=== PATIENT | male | born 1940 | race Caucasian/White ===

== ENCOUNTER 2019-04-02 11:15 | Inpatient (IN) | payer MEDICARE ==
[~2019-04-02] VITALS: Ht 182.9 cm; Wt 118.8 kg
[~2019-04-02 11:15] MED LIST: HYDACE5; HYDCHL12.5 PO; LISI20 PO; OXYACE5T PO; PIRO10
[2019-04-02 13:13] LABS: BASOPHILS ABSOLUTE AUTO 0.08 K/mm3 (0.00-0.23); BASOPHILS PERCENT AUTO 1 % (0-2); EOSINOPHILS ABSOLUTE AUTO 0.36 K/mm3 (0.00-0.68); EOSINOPHILS PERCENT AUTO 4 % (0-6); Hematocrit 43.2 % (37.0-53.0); Hemoglobin 14.3 g/dL (13.5-17.5); IMMATURE GRAN ABSOLUTE AUTO 0.03 K/mm3 (0.00-0.10); IMMATURE GRAN PERCENT AUTO 0 % (0-1); LYMPHOCYTES ABSOLUTE AUTO 2.95 K/mm3 (0.84-5.20); LYMPHOCYTES PERCENT AUTO 31 % (21-46); MONOCYTES ABSOLUTE AUTO 0.87 K/mm3 (0.16-1.47); MONOCYTES PERCENT AUTO 9 % (4-13); Mean Corpuscular HGB 32.6 pg (26.0-34.0); Mean Corpuscular HGB Conc 33.1 g/dL (31.5-36.5); Mean Corpuscular Volume 98 fL (80-100); Mean Platelet Volume 11.3 fL (9.1-12.4); NEUTROPHILS ABSOLUTE AUTO 5.17 K/mm3 (1.96-9.15); NEUTROPHILS PERCENT AUTO 55 % (41-73); Platelet Count 164 K/mm3 (150-400); RDW Coefficient Variation 12.6 % (11.7-14.2); RDW Standard Deviation 45.5 fL (35.1-46.3); Red Blood Cell Count 4.39 M/mm3 (4.30-5.90); White Blood Cell Count 9.46 K/mm3 (4.00-11.30)
[2019-04-02 13:24] LABS: Alanine Aminotransfer (ALT/SGP 15 U/L (12-78); Albumin, Blood 3.4 g/dL (3.4-5.0); Alk Phos 73 U/L (50-136); Anion Gap 6 mmol/L (6-16); Aspartate Aminotrans (AST/SGOT 21 U/L (12-37); Bilirubin, Total 0.4 mg/dL (0.1-1.0); Blood Urea Nitrogen 21 mg/dL (8-24); Bun/Creatinine Ratio 23.3 (12.0-20.0); CO2, Blood 25 mmol/L (21-32); Calcium, Blood 8.4 mg/dL (8.5-10.1); Chloride, Blood 109 mmol/L (98-108); Globulin, Blood 3.3 g/dL (2.2-4.0); Glomerular Filtration Rate >60 (60-); Glucose, Blood 95 mg/dL (70-99); Potassium, Blood 4.1 mmol/L (3.5-5.5); Sodium, Blood 140 mmol/L (136-145); Total Protein, Blood 6.7 g/dL (6.4-8.2)
[2019-04-02 13:29] LABS: International Normalized Ratio 0.97; Prothrombin Time Results 10.3 Sec (9.7-11.5)
[2019-04-02] MEDS ORDERED: Simvastatin20 MG PO (13:32)
--- NOTE | 2019-04-02 18:30 | NUR ---
SHIFT SUMMARY PT HAS BEEN ON SURGICAL FLOOR SINCE APPROX 1630. PT HAS BEEN ON BEDREST PER ORDER, USING URINAL IND. PT ATE DINNER. A/OX4. REPORTS PAIN ONLY WITH MOVEMENT OF LEFT LEG, SHOULDER, AND KNEE. NO NAUSEA. HAS BEEN IN RM WITH PT.
[2019-04-03 03:37] LABS: Hematocrit 38.3 % (37.0-53.0); Hemoglobin 12.8 g/dL (13.5-17.5)
[2019-04-03 03:54] LABS: Anion Gap 4 mmol/L (6-16); Blood Urea Nitrogen 17 mg/dL (8-24); Bun/Creatinine Ratio 20.2 (12.0-20.0); CO2, Blood 26 mmol/L (21-32); Calcium, Blood 7.9 mg/dL (8.5-10.1); Chloride, Blood 109 mmol/L (98-108); Creatinine, Blood 0.84 mg/dL (0.60-1.20); Glomerular Filtration Rate >60 (60-); Glucose, Blood 108 mg/dL (70-99); Potassium, Blood 4.3 mmol/L (3.5-5.5); Sodium, Blood 139 mmol/L (136-145)
--- NOTE | 2019-04-03 05:32 | NUR ---
SHIFT SUMMARY: HORTENSIA WAS ADMITTED YESTERDAY AFTERNOON AFTER EXPERIENCING A FALL RESULTING IN A LEFT HIP FX. HE IS ON BEDREST. HE IS A&O X 4. HE IS A POOR HISTORIAN. HE IS NPO AT THIS TIME. IV PATENT. HE HAS REQUESTED THAT THE SCDs BE TURNED OFF FOR AWHILE. HE IS ON THE ADD-ON LIST FOR SURGERY TODAY, NO TIME SCHEDULED YET.
[2019-04-03 16:50] LABS: Source, Urine Clean Catch
--- NOTE | 2019-04-03 16:53 | NUR ---
PT TAKEN TO DAY SURGERY AT THIS TIME.
[2019-04-03 16:54] LABS: Bilirubin, Urine Neg (Neg); Blood, Urine 5+ (Neg); Glucose Qualitative, Urine Neg (Neg); Ketones, Urine 2+ (Neg); Leukocyte Esterase, Urine Neg (Neg); Nitrite, Urine Neg (Neg); Protein, Urine Neg (Neg); Specific Gravity, Urine 1.015 (1.003-1.022); Urobilinogen, Urine NORM (Normal)
--- NOTE | 2019-04-03 16:58 | NUR ---
INTO SDS VIA BED. PT A&OX3. DENIES PAIN AT THIS TIME. HISTORY AND ALLERGIES REVIEWED. NPO STATUS CONFIRMED. LUNGS CLEAR. SATS>90% ON RA.
[2019-04-03 17:02] LABS: Appearance, Urine Clear (Clear); Color, Urine Yellow (P-Yellow)
[2019-04-03 17:04] LABS: Bacteria Mod /hpf; Mucus Light (0-Heavy); Squamous Epithelial Cells Few /hpf (Few); White Blood Cells, Urine 0-2 /hpf (0-5)
--- NOTE | 2019-04-03 17:33 | NUR ---
SCD'S IN PLACE-DID NOT CLEAN LEFT HIP WITH CHLORHEXIDINE OR APPLY TEDS DUE TO PAIN WITH MOVING AND/OR TOUCHING THE LEFT LEG OR HIP.
--- NOTE | 2019-04-03 19:36 | NUR ---
SHIFT SUMMARY PT CURRENTLY IN OR. REPORT GIVEN TO FRANCK DANIELSON
--- NOTE | 2019-04-03 19:50 | NUR ---
04/03/191949 [place] IMPLANTS NOT IN SYSTEM
--- NOTE | 2019-04-03 20:27 | NUR ---
TO ICU16 FOR RECOVERY FROM OR. AWAKE COLLIER NEEDS REMINDERS TO FOLLOW DIRECTIONS. NON REBREATHER IN PLACE SPO2 95-99% NON RESBREATHER REMOVED AT 2034. RESPIRATIONS REGULAR AND EASY ION ROOM AIR LUNG SOUNDS CLEAR DRESSING TO L HIP DRY AND INTACT. WIGGLES TOES CDB WELL. CONTINUE TO MONITOR AND REPORT CHANGE IN PATIENT CONDITION.
--- NOTE | 2019-04-03 20:30 | NUR ---
ATTEMPTS TO REMOVE GOWN AND SPO2 PROBE. FREQUENT REMINDERS TO ORIENT TO SITUATION POST OP XRAY OBTAINED.
--- NOTE | 2019-04-03 21:00 | NUR ---
REPORT CALLED TO NIKI DANIELSON. AMIRA CHRISTIAN FORGETFULL OF WHERE HE IS."this DOESN'T LOOKM FAMILER" WHERE AM I REORIENTED. REMEMBERS PREVIOUS EVENTS. XCONTINUE TO MONITOR AND REPORT CHANGE IN PATIENT CONDITION
--- NOTE | 2019-04-04 07:24 | NUR ---
SUMMARY RECEIVED FROM ICU/RECOVERY TOIGHT IN NO ACUTE DISTRESS. REPORTS MINIMAL DISCOMFORT. VOIDING. DENIES CP OR SOB. CIRC CKS INTACT.
--- NOTE | 2019-04-04 16:19 | NUR ---
SHIFT SUMMARY PAIN HAS BEEN MINIMAL THIS SHIFT AND HAS BEEN MANAGED WITH TYLENOL. PT WAS ABLE TO WORK WITH THERAPY. SNF RECOMMENDATION. PT TOLERATING PO AND VOIDING. VSS. WILL MONITOR UNTIL REPORT TO ONCOMING RN.
--- NOTE | 2019-04-04 18:44 | NUR ---
REPORT RECIEVED FROM ERUM FIELDS AT ABOUT 1700. PT IS STABLE AT THIS TIME, WILL GIVE REPORT TO FRANCK RN
--- NOTE | 2019-04-05 07:25 | NUR ---
FELIX: POD 2 LEFT HIP PINNING. VSS, AFEBRILE, TOLERATING PO INTAKEM, VOIDING. ENCOURAGE BOWEL CARE AND OOB ACTIVITY. ANTICIPATE PT/OT AND PLAN TO DC TO SNF.
--- NOTE | 2019-04-05 08:09 | NUR ---
DR PHELPS BEEN TO SEE PT.
--- NOTE | 2019-04-05 08:10 | NUR ---
DR PHELPS REPORTS OK TO GO TO SNF FROM HIS STANDPOINT.
--- NOTE | 2019-04-05 10:10 | NUR ---
DR YANCEY HERE TO SEE PT, DISCUSSED PT STATUS.
--- NOTE | 2019-04-05 11:18 | NUR ---
THERAPY IN WORKING WITH PT. FAMILY PRESENT. OT WAS IN AND WORKED WITH PT EARLIER TODAY.
--- NOTE | 2019-04-05 12:47 | NUR ---
REPORT GIVEN FERMÍN AT [facility]. AIR BAG STRIPPER BEEN ASSISTING WITH DISCHARGE, REPORTS PT PLAN TO GO TO [facility] TODAY APPROX 14:00.
--- NOTE | 2019-04-05 14:05 | NUR ---
DISCHARGE: PT BEING DISCHARGED TO SNF ([facility]). PT IV BEEN OUT WNL. PT EATING AND DRINKING WELL. PT VOIDING. PT HAD BM TODAY. PT BEEN ASSISTED WITH ADL'S PRN. FAMILY PRESENT. TRANSPORT TAKING PT TO [facility]. FAMILY TAKING BELONGINGS. PAPERWORK INCLUDING SCRIPT AND DRESSINGS SENT WITH TRANSPORT.
== END 2019-04-05 14:25 | DRG 481 ==
LOC: ER 11:15 → SURS 11:16 → ICUW 04-03 20:26 → SURS 04-03 21:56
PROVIDERS: Emergency Medicine; Orthopaedic Surgery; ADMIT Internal Medicine
PROC: 0QS706Z Reposition Left Upper Femur with Intramedullary Internal Fixation Device, Open Approach (ICD-10-PCS; principal; 2019-04-03 17:45)
DX: S72.142A Displaced intertrochanteric fracture of left femur, initial encounter for closed fracture (principal); M97.8XXA Periprosthetic fracture around other internal prosthetic joint, initial encounter; I10 Essential (primary) hypertension; E78.5 Hyperlipidemia, unspecified; Z91.81 History of falling; W18.30XA Fall on same level, unspecified, initial encounter
CPT/HCPCS: 36415; 71045; 72100; 73030; 73502; 80048; 80053; 81001; 85014; 85018; 85025; 85610; 85730; 86850; 86900; 86901; 87086; 93005; 93010; 97110; 97116; 97162; 97165; 97530; 97535; 99285-25; A9270; C1713; J0690; J1100; J1170; J1650; J2250; J2405; J2704; J3010; J7030; J7120

== ENCOUNTER 2019-06-05 09:18 | Day surgery (SDC) | payer MEDICARE ==
[~2019-06-05] VITALS: Ht 182.9 cm; Wt 115.8 kg
[~2019-06-05 09:18] MED LIST changes: +B Complex-Foli1 EACH PO; +CALCIUM CITRATE PO; +GLUC500 PO; +KRILL OIL500 MG PO; +Simvastatin20 MG PO; +THERA1 EACH PO
--- NOTE | 2019-06-05 11:33 | NUR ---
History, Chart, Medications and Allergies reviewed before start of procedure.Lungs clear T/O to Auscultation. Patient States Post-Procedure ride home has been arranged.GLASSES GIVEN TO . VSS.
--- NOTE | 2019-06-05 16:18 | NUR ---
PT STATES LEFT HIP SURGERY 2 MONTHS PRIOR TO THIS PROCEDURE. UP TO AMBULATE WITH ASSISTANCE. DENIES N/V/PAIN THROUGHOUT. Discharge instructions reviewed with patient. Patient verbalizes understanding. Copy given to patient to take home. Discharged via wheelchair to private car for ride home WITH SPOUSE AND SON.
== END 2019-06-05 22:55 | disposition home or self-care (01) ==
LOC: ORSCMMR 09:18 → ORD 10:45 → ORSCMMR 10:45
PROVIDERS: Surgery
PROC: 0YU60JZ Supplement Left Inguinal Region with Synthetic Substitute, Open Approach (ICD-10-PCS; principal; 2019-06-05 10:45)
DX: K40.30 Unilateral inguinal hernia, with obstruction, without gangrene, not specified as recurrent (principal); I10 Essential (primary) hypertension; E66.9 Obesity, unspecified; Z68.34 Body mass index [BMI] 34.0-34.9, adult; Z79.899 Other long term (current) drug therapy
CPT/HCPCS: C1781; J0690; J1100; J1885; J2250; J2370; J2405; J2704; J3010; J7120

== ENCOUNTER 2019-10-26 10:59 | Day surgery (SDC) | payer MEDICARE ==
[~2019-10-26] VITALS: Ht 182.9 cm; Wt 114.4 kg
--- NOTE | 2019-10-26 12:01 | NUR ---
TO SDS. CONFIRMED PROCEDURE AND SURGERY. PRE OP TEACHING DONE.LUNGS CLEAR T/O
--- NOTE | 2019-10-26 15:05 | NUR ---
Patient up to Ambulate independently. Gait steady. Discharge instructions reviewed with patient. Patient verbalizes understanding. Copy given to patient to take home. Dressing to procedure site clean, dry, intact with no visible drainage, swelling, erythema or bruising noted. Patient States Post-Procedure ride home has been arranged. Discharged via wheelchair to private car for ride home. INCISION COVERED WITH DRSG C/D/I HARD COPY RX GIVEN PT TOOK HARDWARE THAT WAS REMOVED HOME WITH HIM
== END 2019-10-26 14:45 | disposition home or self-care (01) ==
LOC: ORSCMMR 10:59 → ORD 12:30 → ORSCMMR 14:45
PROVIDERS: Orthopaedic Surgery
PROC: 0SPB04Z Removal of Internal Fixation Device from Left Hip Joint, Open Approach (ICD-10-PCS; principal; 2019-10-26 12:30)
DX: T84.84XD Pain due to internal orthopedic prosthetic devices, implants and grafts, subsequent encounter (principal); I10 Essential (primary) hypertension; E78.5 Hyperlipidemia, unspecified; Z87.891 Personal history of nicotine dependence; E66.9 Obesity, unspecified; Z68.34 Body mass index [BMI] 34.0-34.9, adult; Z79.899 Other long term (current) drug therapy
CPT/HCPCS: 73502; J0690; J2270; J2405; J2704; J2765; J3010; J7120

== ENCOUNTER 2023-01-31 11:04 | Inpatient (IN) | payer MEDICARE ==
[~2023-01-31] VITALS: Ht 182.9 cm; Wt 101.5 kg
[~2023-01-31 11:04] MED LIST changes: +ASPI81CH PO; +OXYC5 PO; +PROM25 PO
[2023-01-31 11:52] LABS: BASOPHILS ABSOLUTE AUTO 0.08 K/mm3 (0.00-0.23); BASOPHILS PERCENT AUTO 1 % (0-2); EOSINOPHILS ABSOLUTE AUTO 0.09 K/mm3 (0.00-0.68); EOSINOPHILS PERCENT AUTO 1 % (0-6); Hemoglobin 13.8 g/dL (13.5-17.5); IMMATURE GRAN ABSOLUTE AUTO 0.04 K/mm3 (0.00-0.10); IMMATURE GRAN PERCENT AUTO 0 % (0-1); LYMPHOCYTES ABSOLUTE AUTO 1.86 K/mm3 (0.84-5.20); LYMPHOCYTES PERCENT AUTO 15 % (21-46); MONOCYTES ABSOLUTE AUTO 0.76 K/mm3 (0.16-1.47); MONOCYTES PERCENT AUTO 6 % (4-13); Mean Corpuscular HGB 32.4 pg (26.0-34.0); Mean Corpuscular HGB Conc 34.5 g/dL (31.5-36.5); Mean Corpuscular Volume 94 fL (80-100); Mean Platelet Volume 10.6 fL (9.1-12.4); NEUTROPHILS PERCENT AUTO 77 % (41-73); Platelet Count 193 K/mm3 (150-400); RDW Coefficient Variation 13.4 % (11.7-14.2); RDW Standard Deviation 46.4 fL (35.1-46.3); Red Blood Cell Count 4.26 M/mm3 (4.30-5.90); White Blood Cell Count 12.43 K/mm3 (4.00-11.30)
[2023-01-31 12:04] LABS: Albumin, Blood 3.4 g/dL (3.4-5.0); Bilirubin, Total 0.9 mg/dL (0.1-1.0); Bun/Creatinine Ratio 21.1 (12.0-20.0); Calcium, Blood 8.4 mg/dL (8.5-10.1); Creatinine, Blood 0.76 mg/dL (0.60-1.20); Globulin, Blood 3.3 g/dL (2.2-4.0); Potassium, Blood 3.9 mmol/L (3.5-5.5); Total Protein, Blood 6.7 g/dL (6.4-8.2)
[2023-01-31 17:52] VITALS: BP 160/90
--- NOTE | 2023-01-31 19:32 | NUR ---
ADMISSION NOTES: PATIENT ARRIVED TO ROOM AT AROUND 1725 FROM ER FOR DX OF BILAT INGUINAL HERNIA. PATIENT A&OX4. PLEASANT AND COOPERATIVE c CARE. PATIENT ORIENTATED TO ROOM AND CALL SYSTEM. ADMISSION, MEDRIC AND 2 RN VIRIFIER SKIN ASSESSMENT COMPLETED. NOTED TO HAVE BRUISING SCATTERED T/O, REDNESS AND MOIST TO GROIN, FOLDS, UNDER BREAST AND COCCYX AREA. MORE PROMINENCE BULGING HERNIA TO R GROIN AREA. SKIN TEAR TO L ELBOW COVERED c BAND AID. PATIENT ON CL DIET. PIV TO RAC INFUSING 1/2 NS AT 50 MLS/HR. PATIENT AMBULATES TO BATHROOM c SBA. RA, NO TELE, DENIES CP/PRESSURE, AND SOB VITAL SIGNS REVIEWED. CALL LIGHT IN REACH. PATIENT EDUCATED ON NON SMOKING POLICY, RISK OF INJURY AND IGNITION SOURCES WHEN O2 IN USE. PATIENT DENIES SMOKING AND VERBALIZED UNDERSTANDING.
[2023-01-31 19:40] VITALS: BP 145/82
[2023-02-01 04:45] LABS: BASOPHILS ABSOLUTE AUTO 0.07 K/mm3 (0.00-0.23); BASOPHILS PERCENT AUTO 1 % (0-2); EOSINOPHILS ABSOLUTE AUTO 0.21 K/mm3 (0.00-0.68); EOSINOPHILS PERCENT AUTO 2 % (0-6); Hematocrit 36.8 % (37.0-53.0); Hemoglobin 12.5 g/dL (13.5-17.5); IMMATURE GRAN ABSOLUTE AUTO 0.02 K/mm3 (0.00-0.10); IMMATURE GRAN PERCENT AUTO 0 % (0-1); LYMPHOCYTES ABSOLUTE AUTO 2.45 K/mm3 (0.84-5.20); LYMPHOCYTES PERCENT AUTO 26 % (21-46); MONOCYTES ABSOLUTE AUTO 0.96 K/mm3 (0.16-1.47); MONOCYTES PERCENT AUTO 10 % (4-13); Mean Corpuscular HGB 32.6 pg (26.0-34.0); Mean Corpuscular Volume 96 fL (80-100); Mean Platelet Volume 10.6 fL (9.1-12.4); NEUTROPHILS ABSOLUTE AUTO 5.77 K/mm3 (1.96-9.15); NEUTROPHILS PERCENT AUTO 61 % (41-73); Platelet Count 145 K/mm3 (150-400); RDW Coefficient Variation 13.4 % (11.7-14.2); RDW Standard Deviation 47.9 fL (35.1-46.3); Red Blood Cell Count 3.84 M/mm3 (4.30-5.90); White Blood Cell Count 9.48 K/mm3 (4.00-11.30)
--- NOTE | 2023-02-01 04:52 | NUR ---
SHIFT SUMMARY PT REMAINS A&O X4. VSS THROUGHOUT SHIFT. PT REPORTS HIS PAIN IS IMPROVING, DENIES ANY SEVERE PAIN THIS SHIFT. PT UP AMBULATING TO RESTROOM INDEPENDENTLY. NO ACUTE CHANGES W/PT THROUGH SHIFT. PT SLEPT WELL. FLUIDS INFUSING PER EMAR. WILL UPDATE ONCOMING RN
[2023-02-01 04:55] VITALS: BP 128/81
[2023-02-01 05:05] LABS: Albumin, Blood 2.8 g/dL (3.4-5.0); Bilirubin, Total 0.8 mg/dL (0.1-1.0); Bun/Creatinine Ratio 19.8 (12.0-20.0); Creatinine, Blood 0.71 mg/dL (0.60-1.20); Globulin, Blood 2.8 g/dL (2.2-4.0); Magnesium, Blood 1.9 mg/dL (1.6-2.4); Phosphorus, Blood 3.1 mg/dL (2.5-4.9); Potassium, Blood 3.9 mmol/L (3.5-5.5); Total Protein, Blood 5.6 g/dL (6.4-8.2)
[2023-02-01 07:44] VITALS: BP 131/88
--- NOTE | 2023-02-01 11:40 | NUR ---
UPON PHYSICAL ASSESSMENT, PT'S HERNIA WAS PALPATED AND NOT CAUSING PAIN PER PT REPORT. DISCHARGE ORDERS WERE RECEIVED AND SUBMITTED WHEN PT CALLED TO REPORT 7/10 PAIN TO RLQ, STABBING PAIN, AND HERNIA "HARD A ROCK." TYLENOL IS THE ONLY MEDICATION FOR PAIN AT THIS TIME. CALL PLACED TO LORRAINE, WHO DIRECTED THIS NURSE TO CALL ANKITA. ANKITA RETURNED CALL AND VERBALIZED THAT HE WOULD HAVE SOMEBODY COME UP AND CHECK THE PT OUT. PATIENT IS CURRENTLY LAYING FLAT IN BED TRYING TO PUSH THE HERNIA BACK IN AND THEN UP PER ANKITA'S RECOMMENDATION.
--- NOTE | 2023-02-01 12:19 | NUR ---
SURGEON ASSESSED PATIENT AND PUSHED THE HERNIA BACK IN. VERBALIZED THAT HE WILL PUT AN ORDER IN FOR A CT TODAY. PATIENT WILL BE STAYING THROUGH THE NIGHT, NPO AT MIDNIGHT. LORRAINE NOTIFIED TO CANCEL DISCHARGE. REPORTED TO SEAFOOD PACKER.
[2023-02-01 14:56] VITALS: BP 161/85
--- NOTE | 2023-02-01 16:40 | NUR ---
SHIFT SUMMARY A&OX4, COOPERATIVE WITH CARE. PATIENT WAS ABOUT TO BE DISCHARGED WHEN HIS HERNIA BULGED OUT CAUSING PT STABBING PAIN. HERNIA WAS "HARD A ROCK" AND PATIENT WAS UNABLE TO PUSH IT BACK IN HIMSELF. SURGEON AGUSTIN PUSHED IT BACK IN AND ORDERED A STAT CT. PLAN IS FOR SURGERY TOMORROW. NPO AT MIDNIGHT. PATIENT DENIES ANY OTHER PAINS, CP, HEADACHE, DIZZINESS, OR SOB. INDEPENDENT IN ROOM. 20G IV IN LEFT AC. LEFT FOR THE DAY. CURRENTLY RESTING IN BED WATCHING TV.
[2023-02-01 19:24] VITALS: BP 128/86
[2023-02-02] VITALS (19 sets, daily range): BP systolic 107–153; BP diastolic 75–99
--- NOTE | 2023-02-02 03:53 | NUR ---
SHIFT SUMMARY PT A&O X4, CALM AND COOPERATIVE WITH CARE. NO ACUTE CHANGES OVERNIGHT. PATIENT ON CLEAR FLUID UNTIL MIDNIGHT THEN KEPT NPO SINCE. PT HAS BILATERAL INGUINAL HERNIA AND IS TO GO FOR SURGERY THIS MORNING AT 0730. PT INDEPENDENT IN ROOM, CALL LIGHT IN REACH, AND BED IN LOWEST POSITION. USES CALL LIGHT APPROPRIATELY.
[2023-02-02 07:02] LABS: BASOPHILS ABSOLUTE AUTO 0.08 K/mm3 (0.00-0.23); BASOPHILS PERCENT AUTO 1 % (0-2); EOSINOPHILS ABSOLUTE AUTO 0.29 K/mm3 (0.00-0.68); EOSINOPHILS PERCENT AUTO 4 % (0-6); Hematocrit 38.6 % (37.0-53.0); Hemoglobin 13.6 g/dL (13.5-17.5); IMMATURE GRAN ABSOLUTE AUTO 0.02 K/mm3 (0.00-0.10); IMMATURE GRAN PERCENT AUTO 0 % (0-1); LYMPHOCYTES ABSOLUTE AUTO 1.44 K/mm3 (0.84-5.20); LYMPHOCYTES PERCENT AUTO 20 % (21-46); MONOCYTES ABSOLUTE AUTO 0.71 K/mm3 (0.16-1.47); MONOCYTES PERCENT AUTO 10 % (4-13); Mean Corpuscular HGB 32.9 pg (26.0-34.0); Mean Corpuscular HGB Conc 35.2 g/dL (31.5-36.5); Mean Corpuscular Volume 94 fL (80-100); Mean Platelet Volume 10.4 fL (9.1-12.4); NEUTROPHILS ABSOLUTE AUTO 4.79 K/mm3 (1.96-9.15); NEUTROPHILS PERCENT AUTO 65 % (41-73); Platelet Count 155 K/mm3 (150-400); RDW Coefficient Variation 13.1 % (11.7-14.2); RDW Standard Deviation 45.3 fL (35.1-46.3); Red Blood Cell Count 4.13 M/mm3 (4.30-5.90); White Blood Cell Count 7.33 K/mm3 (4.00-11.30)
[2023-02-02 07:22] LABS: Bun/Creatinine Ratio 16.3 (12.0-20.0); Calcium, Blood 8.3 mg/dL (8.5-10.1); Creatinine, Blood 0.74 mg/dL (0.60-1.20); Potassium, Blood 3.7 mmol/L (3.5-5.5)
--- NOTE | 2023-02-02 13:11 | NUR ---
PT ARRIVED TO ROOM 229 FROM PACU. STOOD AND TRANSFERRED FROM [facility] TO BED WITH SBA. SPOUSE BEDSIDE. DR ARNETT IN TO SEE PT. PT REPORTS PAIN TOLERABLE, RATING 2/10 ON PAIN SCALE. DENIES N/V OR SOB. WATER, JELLO, CRACKERS PROVIDED. CALL LIGHT IN REACH. LAP INCISIONS TO ABD X4 WITH TISSUE ADHESIVE, CDI.
--- NOTE | 2023-02-02 14:50 | NUR ---
EATING JELLO/DENIES PAIN. SPOUSE AT BEDSIDE. CALL LIGHT IN REACH.
--- NOTE | 2023-02-02 17:51 | NUR ---
discharged PT WAS EAGER TO BE DISCHARGED HOME. VSS. DENIED PAIN. VOIDING AND TOLERATING PO. NOTIFIED DR VELEZ WHO STATED PT COULD DC IF WANTED TO. DR PETERS HAD WRITTEN DC ORDERS FOR WHEN OKAY WITH SURGEON. PATTYS DC'D. REVIEWED DC INSTRUCTIONS WITH PT AND SPOUSE; VERBALIZED UNDERSTANDING. PT LEFT UNIT IN WC, ACCOMPANIED BY SPOUSE WHO HAD POSSESSIONS AND DC INSTRUCTIONS IN HAND.
== END 2023-02-02 17:56 | disposition home or self-care (01) | DRG 351 ==
LOC: ER 11:04 → SURS 11:05 → MEDS 11:05 → SURS 02-02 12:51
PROVIDERS: Emergency Medicine; Internal Medicine; Surgery; ADMIT Family Medicine
PROC: 8E0W4CZ Robotic Assisted Procedure of Trunk Region, Percutaneous Endoscopic Approach (ICD-10-PCS; 2023-02-02)
PROC: 0YUA4JZ Supplement Bilateral Inguinal Region with Synthetic Substitute, Percutaneous Endoscopic Approach (ICD-10-PCS; principal; 2023-02-02 08:30)
DX: K40.01 Bilateral inguinal hernia, with obstruction, without gangrene, recurrent (principal); E87.20 Acidosis, unspecified; K63.89 Other specified diseases of intestine; E78.5 Hyperlipidemia, unspecified; K21.9 Gastro-esophageal reflux disease without esophagitis; E86.0 Dehydration; I10 Essential (primary) hypertension; F17.201 Nicotine dependence, unspecified, in remission; Z79.899 Other long term (current) drug therapy; Z98.890 Other specified postprocedural states; Z96.611 Presence of right artificial shoulder joint; Z79.82 Long term (current) use of aspirin
CPT/HCPCS: 36415; 71045; 74177; 80048; 80053; 83605; 83735; 84100; 84484; 85025; 93005; 93010; 96372; 96374-59; 96375; 96376; 99285-25; A9270; C1781; G0378; J0690; J1100; J1170; J1644; J2270; J2371; J2405; J2704; J3010; J7030; J7120; Q9967